=== PATIENT | male | born 1990 | race Caucasian/White ===

== ENCOUNTER 2021-09-23 11:35 | Emergency (ER) | payer SELFPAY ==
[2021-09-23] MEDS ORDERED: Diphtheria,Pertussis(Acell),Tetanus Vaccine 0.5 ML Syringe IM ONE (11:47)
[2021-09-23] MEDS ORDERED: Lidocaine 1% 5 ML VIAL INJECT ONE (11:59)
[2021-09-23] MEDS ORDERED: ceFAZolin 1 GM Vial IVPUSH ONE (12:39)
[2021-09-23] MEDS ORDERED: Bacitracin/Neomycin/Polymyxin B Oint 0.9 GM U/D Packet TOP ONE (12:40)
[2021-09-23] MEDS ORDERED: Sodium Chloride 0.9% 10 ML Syringe FLUSH PRN (13:14)
== END 2021-09-23 14:50 | disposition home or self-care (01) ==
LOC: LL.ED 11:35
DX: S61.412A Laceration without foreign body of left hand, initial encounter (principal); F17.210 Nicotine dependence, cigarettes, uncomplicated; Z23 Encounter for immunization; X58.XXXA Exposure to other specified factors, initial encounter
CPT/HCPCS: 12002; 90471; 90715; 96374; 99282-25; J0690; J3490